=== PATIENT | male | born 1945 | race African-American/Black ===

== ENCOUNTER 2020-03-24 04:07 | Inpatient (IN) | payer MEDICARE, OTHER ==
[~2020-03-24] VITALS: Ht 167.6 cm; Wt 68.2 kg
[~2020-03-24 04:07] MED LIST: AMLO10TA80 PO; APIX5TAB PO; ATEN100T PO; ATOR10TA69 PO; LATA2.5D14 EACHEYE; LOSA100T32 PO; METF-414 PO; Meclizine Hcl PO; PIOG30TA10 PO; SPIR25TA6 PO
[2020-03-24] MEDS ORDERED: FUROSEMIDE 100MG/10ML VIAL IVP ONE (04:30)
[2020-03-24] MEDS ORDERED: ASPIRIN 81MG TABLET PO ONE (04:30)
[2020-03-24] MEDS: NITROGLYCERIN 0.4MG TABLET SL SL PRN ×2 (05:39→06:40)
[2020-03-24 06:28] LABS: BASOPHILS % 1.4 % (0.0-2.0); EOSINOPHILS % 2.4 % (0.0-5.0); HEMOGLOBIN. 8.5 g/dL (14.0-18.0); LYMPHOCYTES % 14.5 % (20.0-50.0); MEAN CORPUSCULAR HEMOGLOBIN 28.1 pg (28.0-32.0); MEAN CORPUSCULAR VOLUME 86.4 fL (80.0-94.0); MEAN PLATELET VOLUME 9.6 fl (7.4-10.4); NEUTROPHILS % 70.7 % (40.0-76.0); PLATELET 215 x1000/uL (130-400); RED BLOOD CELL COUNT 3.01 mill/uL (4.7-6.1); RED CELL DISTRIBUTION WIDTH 22.6 % (11.6-14.6)
[2020-03-24 06:39] LABS: CHLORIDE 113 mEq/L (98-107)
[2020-03-24 06:43] LABS: ETHANOL BLOOD < 10 mg/dL
[2020-03-24 07:06] LABS: INR 1.1; PARTIAL THROMBOPLASTIN TIME 31.3 sec (23.4-31.0); PROTHROMBIN TIME 11.4 sec (9.6-11.0)
[2020-03-24 08:40] LABS: CLARITY URINE CLEAR (CLEAR); COLOR URINE YELLOW (YELLOW); KETONES URINE NEGATIVE (NEGATIVE); LEUKOCYTE ESTERASE URINE 1+ (NEGATIVE); NITRITE URINE NEGATIVE (NEGATIVE); OCCULT BLOOD URINE NEGATIVE (NEGATIVE); PH URINE 7.5 (4.5-8.0); PROTEIN URINE TRACE (NEGATIVE); SPECIFIC GRAVITY URINE 1.006 (1.005-1.030); UROBILINOGEN URINE 0.2 E.U./dL (0.2-1.0)
[2020-03-24 09:03] LABS: *AMPHETAMINES SCREEN URINE NEGATIVE (NEGATIVE); *BARBITURATES SCREEN URINE NEGATIVE (NEGATIVE); *BENZODIAZEPINES SCREEN URINE NEGATIVE (NEGATIVE)
[2020-03-24 09:04] LABS: *COCAINE SCREEN URINE NEGATIVE (NEGATIVE); CANNABINOID URINE SCREEN NEGATIVE (NEGATIVE); METHADONE URINE SCREEN NEGATIVE (NEGATIVE); OPIATES URINE SCREEN NEGATIVE (NEGATIVE); PHENCYCLIDINE URINE SCREEN NEGATIVE (NEGATIVE)
[2020-03-24] MEDS ORDERED: LEVOFLOXACIN 750MG PREMIX 150 ML IV ONE (10:00)
[2020-03-24 11:14] LABS: PLATELET ESTIMATE NORMAL
[2020-03-24] MEDS ORDERED: ONDANSETRON HCL 4MG/2ML INJ IV PRN (12:30)
[2020-03-24] MEDS ORDERED: ACETAMINOPHEN 325MG TABLET PO PRN ×2 (12:30)
[2020-03-24] MEDS ORDERED: NITROGLYCERIN 0.4MG TABLET SL SL PRN (12:30)
[2020-03-24] MEDS ORDERED: ZOLPIDEM TARTRATE 5MG TABLET PO PRN (12:30)
[2020-03-24] MEDS ORDERED: DEXTROSE 50% WATER 50ML SYRINGE IV PRN (12:30)
[2020-03-24] MEDS ORDERED: DOCUSATE SODIUM 100MG CAPSULE PO PRN (12:30)
[2020-03-24] MEDS ORDERED: NA PHOS,M-B/NA PHOS,DI-BA ENEMA 118ML PR PRN (12:30)
[2020-03-24] MEDS ORDERED: ALBUTEROL 6.7GM HFA INHALER ORI PRN (12:30)
[2020-03-24] MEDS ORDERED: MAGNESIUM/ALUMINUM HYDROXIDE/SIMETHICONE 30ML UDC PO PRN (12:30)
[2020-03-24] MEDS ORDERED: GUAIFENESIN 200MG/10ML SUGAR FREE UDC PO PRN (12:30)
[2020-03-24] MEDS ORDERED: KETOROLAC 15MG/ML VIAL IV PRN (12:30)
[2020-03-24] MEDS: INSULIN LISPRO 100 UNITS/ML SUBCUT SCH ×4 (12:52→20:05)
[2020-03-24] MEDS: BLOOD SUGAR DIAGNOSTIC STRIP TEST SCH ×4 (12:52→20:05)
[2020-03-24] MEDS ORDERED: AZITHROMYCIN 500 MG in DEXT 5% WATER 250 ML IV SCH (13:00)
[2020-03-24] MEDS ORDERED: CEFTRIAXONE 1 G PREMIX 50 ML IV SCH (13:00)
[2020-03-24] MEDS ORDERED: ENOXAPARIN 40MG/0.4ML SYR SUBCUT SCH (13:00)
[2020-03-24 13:15] LABS: TOTAL IRON BINDING CAPACITY 346 ug/dL (250-450)
[2020-03-24 14:28] LABS: FOLIC ACID (FOLATE) SERUM 8.6 ng/mL (>5.38)
[2020-03-24] MEDS: APIXABAN 5 MG TABLET PO SCH (18:36)
[2020-03-24 20:00] VITALS: BP 135/89
[2020-03-24] MEDS: FUROSEMIDE 40MG/4ML VIAL IVP SCH (20:03)
[2020-03-24] MEDS: FAMOTIDINE 20MG TABLET PO SCH (20:04)
[2020-03-24] MEDS: METOPROLOL TARTRATE 25MG TABLET PO SCH (20:04)
[2020-03-24] MEDS: SPIRONOLACTONE 25MG TABLET PO SCH (20:04)
[2020-03-24] MEDS: ASCORBIC ACID 500 MG TABLET PO SCH (20:05)
[2020-03-25] VITALS (7 sets, daily range): BP systolic 106–168; BP diastolic 53–85
[2020-03-25] MEDS: APIXABAN 5 MG TABLET PO SCH ×2 (06:02→18:51)
[2020-03-25] MEDS: CLONIDINE 0.1MG TABLET PO PRN (06:03)
[2020-03-25] MEDS: BLOOD SUGAR DIAGNOSTIC STRIP TEST SCH ×4 (06:24→21:00)
[2020-03-25] MEDS: INSULIN LISPRO 100 UNITS/ML SUBCUT SCH ×4 (07:46→21:00)
[2020-03-25 07:48] LABS: BASOPHILS % 0.9 % (0.0-2.0); EOSINOPHILS % 1.5 % (0.0-5.0); HEMATOCRIT. 26.8 % (42.0-52.0); HEMOGLOBIN. 8.8 g/dL (14.0-18.0); LYMPHOCYTES % 12.3 % (20.0-50.0); MEAN CORPUSCULAR HEMOGLOBIN 28.2 pg (28.0-32.0); MEAN CORPUSCULAR VOLUME 85.5 fL (80.0-94.0); MEAN PLATELET VOLUME 9.2 fl (7.4-10.4); MONOCYTES % 14.9 % (2.0-8.0); NEUTROPHILS % 70.4 % (40.0-76.0); PLATELET 219 x1000/uL (130-400); RED BLOOD CELL COUNT 3.13 mill/uL (4.7-6.1); RED CELL DISTRIBUTION WIDTH 21.8 % (11.6-14.6)
[2020-03-25 08:06] LABS: CHLORIDE 107 mEq/L (98-107)
[2020-03-25 08:23] LABS: PHOSPHORUS 3.7 mg/dL (2.5-4.9)
[2020-03-25] MEDS: ALBUTEROL 6.7GM HFA INHALER ORI SCH ×3 (09:00→22:00)
[2020-03-25] MEDS: AMLODIPINE 10MG TABLET PO SCH (09:47)
[2020-03-25] MEDS: METOPROLOL TARTRATE 25MG TABLET PO SCH (09:48)
[2020-03-25] MEDS: ZINC SULFATE 220 MG ( 50 ) CAPSULE PO SCH (09:48)
[2020-03-25] MEDS: FUROSEMIDE 40MG/4ML VIAL IVP SCH ×2 (09:48→22:00)
[2020-03-25] MEDS: SPIRONOLACTONE 25MG TABLET PO SCH ×2 (09:48→22:00)
[2020-03-25] MEDS: ASPIRIN 325MG EC TABLET PO SCH (09:48)
[2020-03-25] MEDS: FAMOTIDINE 20MG TABLET PO SCH ×2 (13:39→21:59)
[2020-03-25] MEDS: CEFTRIAXONE 1,000 MG in DEXTROSE 5% WATER 50 ML IV SCH (13:39)
[2020-03-25] MEDS: ASCORBIC ACID 500 MG TABLET PO SCH ×2 (13:39→22:03)
[2020-03-25] MEDS: AZITHROMYCIN 500 MG in DEXT 5% WATER 250 ML IV SCH (15:36)
[2020-03-25] MEDS ORDERED: MAGNESIUM 2 G PREMIX 50 ML IV NR (19:45)
[2020-03-26] VITALS: BP 148/73
[2020-03-26 04:00] VITALS: BP 174/82
[2020-03-26] MEDS: CLONIDINE 0.1MG TABLET PO PRN (04:27)
[2020-03-26] MEDS: ALBUTEROL 6.7GM HFA INHALER ORI SCH ×5 (04:28→20:50)
[2020-03-26] MEDS: APIXABAN 5 MG TABLET PO SCH ×2 (05:27→17:12)
[2020-03-26] MEDS: BLOOD SUGAR DIAGNOSTIC STRIP TEST SCH ×4 (06:53→21:00)
[2020-03-26] MEDS: INSULIN LISPRO 100 UNITS/ML SUBCUT SCH ×4 (07:39→21:00)
[2020-03-26 08:00] VITALS: BP 169/86
[2020-03-26] MEDS: ZINC SULFATE 220 MG ( 50 ) CAPSULE PO SCH (09:59)
[2020-03-26] MEDS: AMLODIPINE 10MG TABLET PO SCH (09:59)
[2020-03-26] MEDS: ASPIRIN 325MG EC TABLET PO SCH (09:59)
[2020-03-26] MEDS: FAMOTIDINE 20MG TABLET PO SCH ×2 (09:59→20:47)
[2020-03-26] MEDS: SPIRONOLACTONE 25MG TABLET PO SCH ×2 (09:59→20:47)
[2020-03-26] MEDS: FUROSEMIDE 40MG/4ML VIAL IVP SCH ×2 (09:59→20:48)
[2020-03-26] MEDS: ASCORBIC ACID 500 MG TABLET PO SCH ×2 (09:59→20:47)
[2020-03-26 12:00] VITALS: BP 121/34
[2020-03-26] MEDS: CEFTRIAXONE 1,000 MG in DEXTROSE 5% WATER 50 ML IV SCH (13:09)
[2020-03-26] MEDS: AZITHROMYCIN 500 MG in DEXT 5% WATER 250 ML IV SCH (14:22)
[2020-03-26 16:00] VITALS: BP 157/80
[2020-03-26 20:00] VITALS: BP 143/70
[2020-03-27] VITALS: BP 132/75
[2020-03-27 04:00] VITALS: BP 159/82
[2020-03-27] MEDS: APIXABAN 5 MG TABLET PO SCH ×2 (05:43→18:00)
[2020-03-27] MEDS: ALBUTEROL 6.7GM HFA INHALER ORI SCH ×4 (05:44→20:54)
[2020-03-27] MEDS: BLOOD SUGAR DIAGNOSTIC STRIP TEST SCH ×4 (05:49→20:54)
[2020-03-27] MEDS: INSULIN LISPRO 100 UNITS/ML SUBCUT SCH ×4 (05:49→21:00)
[2020-03-27 06:59] LABS: HEMATOCRIT. 31.2 % (42.0-52.0); HEMOGLOBIN. 10.7 g/dL (14.0-18.0); MEAN CORPUSCULAR HEMOGLOBIN 29.4 pg (28.0-32.0); MEAN CORPUSCULAR VOLUME 85.9 fL (80.0-94.0); PLATELET 268 x1000/uL (130-400); RED BLOOD CELL COUNT 3.64 mill/uL (4.7-6.1); RED CELL DISTRIBUTION WIDTH 21.6 % (11.6-14.6)
[2020-03-27 07:17] LABS: CHLORIDE 104 mEq/L (98-107)
[2020-03-27 08:00] VITALS: BP 140/80
[2020-03-27] MEDS ORDERED: POTASSIUM CHLORIDE 20MEQ TABLET SR PO NR (09:30)
[2020-03-27] MEDS: ZINC SULFATE 220 MG ( 50 ) CAPSULE PO SCH (09:33)
[2020-03-27] MEDS: ASCORBIC ACID 500 MG TABLET PO SCH ×2 (09:33→20:53)
[2020-03-27] MEDS: ASPIRIN 325MG EC TABLET PO SCH (09:33)
[2020-03-27] MEDS: FUROSEMIDE 40MG/4ML VIAL IVP SCH ×2 (09:33→20:53)
[2020-03-27] MEDS: AMLODIPINE 10MG TABLET PO SCH (09:36)
[2020-03-27] MEDS: SPIRONOLACTONE 25MG TABLET PO SCH ×2 (09:37→21:11)
[2020-03-27] MEDS: FAMOTIDINE 20MG TABLET PO SCH ×2 (09:42→20:53)
[2020-03-27 12:00] VITALS: BP 158/82
[2020-03-27] MEDS: CEFTRIAXONE 1,000 MG in DEXTROSE 5% WATER 50 ML IV SCH (14:14)
[2020-03-27 16:00] VITALS: BP 124/75
[2020-03-27] MEDS: AZITHROMYCIN 500 MG in DEXT 5% WATER 250 ML IV SCH (16:19)
[2020-03-27 20:00] VITALS: BP 142/67
[2020-03-27 20:37] LABS: PLATELET ESTIMATE NORMAL
[2020-03-28] VITALS: BP 142/80
[2020-03-28] MEDS: ALBUTEROL 6.7GM HFA INHALER ORI SCH ×2 (02:10→10:38)
[2020-03-28 04:00] VITALS: BP 152/74
[2020-03-28] MEDS: BLOOD SUGAR DIAGNOSTIC STRIP TEST SCH ×2 (05:24→12:34)
[2020-03-28] MEDS: INSULIN LISPRO 100 UNITS/ML SUBCUT SCH ×2 (05:25→12:34)
[2020-03-28 06:10] LABS: BASOPHILS % 1.1 % (0.0-2.0); EOSINOPHILS % 6.1 % (0.0-5.0); HEMATOCRIT. 31.1 % (42.0-52.0); HEMOGLOBIN. 10.4 g/dL (14.0-18.0); LYMPHOCYTES % 15.3 % (20.0-50.0); MEAN CORPUSCULAR HEMOGLOBIN 28.4 pg (28.0-32.0); MEAN CORPUSCULAR VOLUME 85.2 fL (80.0-94.0); MEAN PLATELET VOLUME 9.3 fl (7.4-10.4); NEUTROPHILS % 63.5 % (40.0-76.0); PLATELET 297 x1000/uL (130-400); RED BLOOD CELL COUNT 3.65 mill/uL (4.7-6.1); RED CELL DISTRIBUTION WIDTH 21.5 % (11.6-14.6)
[2020-03-28] MEDS: APIXABAN 5 MG TABLET PO SCH (06:27)
[2020-03-28 07:05] LABS: CHLORIDE 104 mEq/L (98-107)
[2020-03-28 08:00] VITALS: BP 149/73
[2020-03-28] MEDS: ASPIRIN 325MG EC TABLET PO SCH (09:00)
[2020-03-28] MEDS: FUROSEMIDE 40MG/4ML VIAL IVP SCH (10:04)
[2020-03-28] MEDS: AMLODIPINE 10MG TABLET PO SCH (10:05)
[2020-03-28] MEDS: FAMOTIDINE 20MG TABLET PO SCH (10:05)
[2020-03-28] MEDS: ASCORBIC ACID 500 MG TABLET PO SCH (10:05)
[2020-03-28] MEDS: SPIRONOLACTONE 25MG TABLET PO SCH (10:05)
[2020-03-28] MEDS: ZINC SULFATE 220 MG ( 50 ) CAPSULE PO SCH (10:05)
[2020-03-28 12:00] VITALS: BP 151/73
[2020-03-28 13:03] VITALS: BP 138/71
== END 2020-03-28 14:20 | disposition home or self-care (01) | DRG 177 ==
LOC: ER 04:07 → MICUSO 12:10 → EDBEDREQTM 12:14 → EDBEDREQ 12:14 → 7WST 17:02
PROVIDERS: ADMIT Internal Medicine; ATTEND Internal Medicine
DX: U07.1 COVID-19 (principal); J96.00 Acute respiratory failure, unspecified whether with hypoxia or hypercapnia; J12.82 Pneumonia due to coronavirus disease 2019; I50.43 Acute on chronic combined systolic (congestive) and diastolic (congestive) heart failure; E43 Unspecified severe protein-calorie malnutrition; N39.0 Urinary tract infection, site not specified; J91.8 Pleural effusion in other conditions classified elsewhere; I11.0 Hypertensive heart disease with heart failure; D63.8 Anemia in other chronic diseases classified elsewhere; E11.9 Type 2 diabetes mellitus without complications; E78.5 Hyperlipidemia, unspecified; I25.10 Atherosclerotic heart disease of native coronary artery without angina pectoris; I44.1 Atrioventricular block, second degree; I48.0 Paroxysmal atrial fibrillation; Z79.01 Long term (current) use of anticoagulants; Z82.49 Family history of ischemic heart disease and other diseases of the circulatory system; I25.2 Old myocardial infarction; Z79.4 Long term (current) use of insulin; Z86.73 Personal history of transient ischemic attack (TIA), and cerebral infarction without residual deficits; Z95.1 Presence of aortocoronary bypass graft; Z68.24 Body mass index [BMI] 24.0-24.9, adult; Z88.8 Allergy status to other drugs, medicaments and biological substances; Z79.899 Other long term (current) drug therapy
CPT/HCPCS: 36415; 71045; 80048; 80053; 80061; 80305; 80320; 81003; 82553; 82607; 82746; 82962; 83540; 83550; 83615; 83735; 83880; 84100; 84145; 84484; 85025; 93005; 93970; 99285; C1893; J0456; J0696; J1650; J1885; J1940; J1956; J3475; J7040; J7060; U0003; G0480